=== PATIENT | female | born 1980 | race Caucasian/White ===

== ENCOUNTER 2016-06-05 23:24 | Emergency (ER) | payer OTHER ==
--- NOTE | 2016-06-06 02:32 | ED CLINICAL REPORT ---
Clinical Report - Physicians/Mid Levels [facility] [address] [place] [address] 06/05/2016 23:26 Patient: MALORIE SMALLWOOD Time Seen: 00:20. Arrived- By private vehicle. Historian- patient. HISTORY OF PRESENT ILLNESS Chief Complaint: LOWER EXTREMITY SWELLING. Severity is described as being mild. This started several days ago and is still present. It was gradual in onset and has been constant. Symptoms located in the area of the right ankle, right leg, right foot, left leg, left foot and left ankle. The patient has not had redness. She has had new onset of swelling of the right lower leg, swelling of the left lower leg, swelling of the right ankle, swelling of the left ankle, swelling of the right foot and swelling of the left foot. Patient denies an injury. Similar symptoms previously: Once. ( when she was ). REVIEW OF SYSTEMS No chills, fever, sweats, calf pain or chest pain. No cough, difficulty breathing, palpitations, abdominal pain or constipation. No diarrhea, nausea, vomiting or urinary problems. She has had pedal edema. All systems otherwise negative, except as recorded above. PAST HISTORY ( PCP - [facility]). Problems: Depression. Asthma. Additional Surgeries: no known surgeries. Medications: Uncertain antidepressant. Allergies: No Known Drug Allergy. SOCIAL HISTORY Current some days light tobacco smoker (cigarette). Occasional alcohol use. No drug use. Is a local resident. FAMILY HISTORY Hypertension in first-degree relative (father); cancer in first-degree relative (sibling) and grandparent. ADDITIONAL NOTES The nursing notes have been reviewed. PHYSICAL EXAM Vital Signs: 06/05/2016 23:32 BP: 124/74. HR: 86. RR: 20. O2 saturation: 98%. Temp: 98.3 F. Pain level now: 0/10. Have been reviewed. Appearance: Alert. No acute distress. Eyes: Pupils equal, round and reactive to light. ENT: Pharynx normal. Neck: Normal inspection. Neck supple. No JVD. CVS: Normal heart rate and rhythm. Heart sounds normal. Respiratory: No respiratory distress. Breath sounds normal. Abdomen: Soft and nontender. No organomegaly. Back: Normal inspection. Skin: Skin warm and dry. Normal skin color. Normal skin turgor. Extremities: Lower extremities exhibit normal ROM. Bilateral mild pitting edema of the lower extremities involving both feet, both ankles and both lower legs. No calf tenderness. Extremities otherwise negative. LABS, X-RAYS, AND EKG EKG: No acute process. Normal EKG. Rate: 65. Prior EKG unavailable. The study has been independently viewed by me. Chest X-ray: No acute disease. The X-rays were independently viewed by me. Laboratory Tests: CBC w Diff: (BRITTANI: 06/06/2016 00:30) ( MsgRcvd 06/06/2016 00:41) Final results Test Result Flag Units (Reference) WHITE BLOOD COUNT 9.4 K/uL (4.5-11.5) RED BLOOD COUNT 4.43 M/uL (4.00-5.20) HEMOGLOBIN 13.4 gm/dL (12.0-16.0) HEMATOCRIT 40.6 % (36.0-46.0) MEAN CELL VOLUME 92 fL (80-100) MEAN CORPUSCULAR HGB 30 pg (26-34) MEAN CORPUSCULAR HGB CONC 33 g/dL (31-37) RED CELL DISTRIBUTION WIDTH 13.7 % (11.6-14.8) PLATELET COUNT 325 K/uL (150-400) NEUTROPHIL % 67.9 % (50-75) LYMPH % 23.8 L % (25-40) MONO % 5.3 % (3-14) EOSINOPHIL % 1.7 % (0-4) BASOPHIL % 1.3 % (0-2) BNP: (BRITTANI: 06/06/2016 00:30) ( MsgRcvd 06/06/2016 01:09) Final results Test Result Flag Units (Reference) B-TYPE NATRIURETIC PEPTIDE 65.6 pg/ml (5-100) CMP: (BRITTANI: 06/06/2016 00:30) ( MsgRcvd 06/06/2016 00:55) Final results Test Result Flag Units (Reference) GLUCOSE 98 mg/dL (70-110) BUN 9 mg/dL (7-18) CREATININE 0.8 mg/dL (0.6-1.3) Estimated GFR >60 mL/min Estimated GFR- >60 mL/min Note: Persistent reduction over 3 months in eGFR<60 mL/min/1.73 m2 defines CKD. Patients with eGFR values>=60 mL/min/1.73 m2 may also have CKD if evidence ofpersistent proteinuria. Additional information may be foundat www.kidney.org. SODIUM 143 mmol/L (136-145) POTASSIUM 3.9 mmol/L (3.5-5.1) CHLORIDE 105 mmol/L (98-107) CARBON DIOXIDE 29 mmol/L (21-32) CALCIUM 9.1 mg/dL (8.5-10.1) TOTAL PROTEIN 7.2 g/dL (6.4-8.2) ALBUMIN 3.4 g/dL (3.3-5.0) BILIRUBIN, TOTAL 0.2 mg/dL (0.0-1.0) ALKALINE PHOSPHATASE 56 U/L (46-116) AST (SGOT) 18 U/L (15-37) ALT (SGPT) 28 U/L (12-78) LIPASE 121 U/L (73-393) AMYLASE 67 U/L (25-115) CPK 60 U/L (24-260) TROPONIN I <0.05 L ng/mL (0.00-1.5) TROPONIN REFERENCE RANGE:<0.1 NEGATIVE0.1-1.5 INDETERMINANT>1.5 POSITIVE . PROGRESS AND PROCEDURES Course of Care: Patient is stable. Patient/family counseled. Old medical records ordered. Old records unavailable. Disposition: Discharged. Condition: stable. CLINICAL IMPRESSION Bilateral pedal edema. INSTRUCTIONS Elevate affected areas above chest level. Warnings: Further evaluation is necessary. GENERAL WARNINGS: Return or contact your physician immediately if your condition worsens or changes unexpectedly, if not improving as expected, or if other problems arise. Prescription Medications: Lasix 20 mg: take 1 orally every 24 hours. Dispense five (5). No refills. Substitution is permissible. Understanding of the discharge instructions verbalized by patient. Follow-up with: [facility], , , [address], , [place], [address] Follow up Wednesday in two days. Call for an appointment. (Electronically signed by Jacques Flannery MD 06/08/2016 10:05)
--- NOTE | 2016-06-06 02:32 | ED ORDER SUMMARY ---
..... Patient: MALORIE SMALLWOOD OrderSheet [facility] VisitID: [id number] [place] [address] 35y, F Registration Date/Time: 06/05/2016 ORDER SHEET Weight: 104.3 kg (stated) Allergies: No Known Drug Allergy GENERAL ORDERS: Chest 1V Urgent (00:06/06/2016 Micaela DIXON) (Ack 0:26 SRedmond) (0:29 RFay) CBC w Diff Urgent (00:06/06/2016 Micaela DIXON) (Ack 0:26 SRedmond) (3:31 HSoule) CMP Urgent (00:06/06/2016 Micaela DIXON) (Ack 0:26 SRedmond) (3:31 HSoule) BNP Urgent (00:06/06/2016 Micaela DIXON) (Ack 0:26 SRedmond) (3:31 HSoule) Amylase Urgent (00:06/06/2016 Micaela DIXON) (Ack 0:26 SRedmond) (3:31 HSoule) Lipase Urgent (00:06/06/2016 Micaela DIXON) (Ack 0:26 SRedmond) (3:31 HSoule) CPK Urgent (00:06/06/2016 Micaela DIXON) (Ack 0:26 SRedmond) (3:31 HSoule) Troponin-I Urgent (00:06/06/2016 Micaela DIXON) (Ack 0:26 SRedmond) (3:31 HSoule) Urine Urgent (00:06/06/2016 Micaela DIXON) (Ack 0:26 SRedmond) (Cancelled: Patient Off Unit3:31 HSoule) UA-Culture if indicated Urgent (00:06/06/2016 Micaela DIXON) (Ack 0:26 SRedmond) (Cancelled: Patient Off Unit3:31 HSoule) EKG - ER Stat (00:06/06/2016 Micaela DIXON) (Ack 0:26 SRedmond) (0:34 HSoule) MEDICATION ORDERS: IV FLUIDS: IV Saline Lock (00:06/06/2016 Micaela DIXON) (Ack 0:22 HSoule) (0:34 HSoule) ORDER SHEET NOTES: [Electronically signed by Veronique Singh (03:32 06/06/2016)] [Electronically signed by Jacques Flannery MD (10:05 06/08/2016)] [Electronically locked/signed by Veronique Singh (03:32 06/06/2016)]
--- NOTE | 2016-06-06 02:32 | ED ORDER SUMMARY ---
..... Patient: MALORIE SMALLWOOD OrderSheet [facility] VisitID: [id number] [place] [address] 35y, F Registration Date/Time: 06/05/2016 ORDER SHEET Weight: 104.3 kg (stated) Allergies: No Known Drug Allergy GENERAL ORDERS: Chest 1V Urgent (00:06/06/2016 Micaela DIXON) (Ack 0:26 SRedmond) (0:29 RFay) CBC w Diff Urgent (00:06/06/2016 Micaela DIXON) (Ack 0:26 SRedmond) (3:31 HSoule) CMP Urgent (00:06/06/2016 Micaela DIXON) (Ack 0:26 SRedmond) (3:31 HSoule) BNP Urgent (00:06/06/2016 Micaela DIXON) (Ack 0:26 SRedmond) (3:31 HSoule) Amylase Urgent (00:06/06/2016 Micaela DIXON) (Ack 0:26 SRedmond) (3:31 HSoule) Lipase Urgent (00:06/06/2016 Micaela DIXON) (Ack 0:26 SRedmond) (3:31 HSoule) CPK Urgent (00:06/06/2016 Micaela DIXON) (Ack 0:26 SRedmond) (3:31 HSoule) Troponin-I Urgent (00:06/06/2016 Micaela DIXON) (Ack 0:26 SRedmond) (3:31 HSoule) Urine Urgent (00:06/06/2016 Micaela DIXON) (Ack 0:26 SRedmond) (Cancelled: Patient Off Unit3:31 HSoule) UA-Culture if indicated Urgent (00:06/06/2016 Micaela DIXON) (Ack 0:26 SRedmond) (Cancelled: Patient Off Unit3:31 HSoule) EKG - ER Stat (00:06/06/2016 Micaela DIXON) (Ack 0:26 SRedmond) (0:34 HSoule) MEDICATION ORDERS: IV FLUIDS: IV Saline Lock (00:06/06/2016 Micaela DIXON) (Ack 0:22 HSoule) (0:34 HSoule) ORDER SHEET NOTES: [Electronically signed by Veronique Singh (03:32 06/06/2016)] [Electronically signed by Jacques Flannery MD (10:05 06/08/2016)] [Electronically locked/signed by Veronique Singh (03:32 06/06/2016)]
--- NOTE | 2016-06-06 02:32 | ED NURSING NOTES ---
Clinical Report - Nurses [facility] [address] [place] [address] 06/05/2016 23:26 Patient: MALORIE SMALLWOOD TRIAGE Triage time 23:32 Jun 05 2016. Acuity: LEVEL 3. Chief Complaint: RIGHT LOWER EXTREMITY SWELLING. LEFT LOWER EXTREMITY SWELLING. MARIA ELENA COMA SCORE: Maria Elena Coma Scale: 15- eyes open spontaneously (4); best verbal response- oriented x 4 (5); best motor response- obeys commands (6). --23:35 Veronique Singh 23:32 06/05/16. BP: 124/74. HR: 86. RR: 20. O2 saturation: 98%. Temp: 98.3 F (oral). Pain level now: 0/10. --23:35 Veronique Singh. Weight: 104.3 kg stated. Height/Length: 67 inches Per Patient. BMI: 36. --23:33 Veronique Singh. Medications None. --23:33 Veronique Singh. Medication/allergy information source: the patient. --23:35 Veronique Singh. Allergies No Known Drug Allergy. --23:33 Veronique Singh. History Arrived by private vehicle. Historian: patient. Accompanied by family. Primary physician ([facility]). No injury occurred. This occurred (3 days). ( Patient reports some swelling noted in her feet over the last three days. She denies redness, pain or injury.). Has had no swelling or redness. No difficulty breathing. PAST MEDICAL HX: No history of hypertension. No history of deep vein thrombosis. Immunizations: up-to-date. Last normal menstrual period- Irregular periods, spotting now. Uses depo implants. SOCIAL HX: Light tobacco smoker (cigarette)- less than 1/2 a pack per day. Occasional alcohol use. No drug use. No infectious disease exposure. ABUSE ASSESSMENT: No report of abuse. SELF HARM ASSESSMENT: A self harm assessment was performed. The patient answered "no" to the question "Have you recently felt down, depressed, or hopeless?", "Have you noticed less interest or pleasure in doing things?", "Do you have thoughts of harming or killing yourself?", "Are you here because you tried to hurt yourself?", "Have you ever tried to hurt yourself before today?", "Have you recently had thoughts about harming or killing others?" and "Do you have any dangerous items in your possession?". FALL RISK ASSESSMENT: Fall risk assessment completed. No fall risk identified. NUTRITIONAL RISK ASSESSMENT: The nutritional risk assessment revealed no deficiencies. FUNCTIONAL ASSESSMENT: Functional assessment: no impairments noted. LEARNING NEEDS ASSESSMENT: The learning needs assessment revealed no barriers. SKIN INTEGRITY ASSESSMENT: Skin integrity risk assessment completed. No skin integrity risk identified. --23:35 Veronique Singh. PROBLEMS: Asthma. --23:34 Veronique Singh. ADDITIONAL SURGERIES: no known surgeries. Interventions ID band on patient. To treatment room. --23:35 Veronique Singh. PHYSICAL ASSESSMENT GENERAL / NEURO / PSYCH: Oriented X 4. Alert. Appears in no acute distress. EXTREMITIES: Bilateral 1+ pitting edema of the lower extremities involving both feet and both ankles. Extremity pulses are within normal limits. Extremities exhibit normal ROM. SKIN: Skin intact. Skin is warm and dry. --23:36 Veronique Singh. NURSING PROGRESS NOTES Monitoring of patient in place. Extremity elevated. Patient gowned. Reassurance given to the patient. Two patient identifiers checked. Call light placed in reach. Side rails up x 1. Bed placed in lowest position. Brakes of bed on. Patient ready for evaluation- chart flagged and ED physician notified. --23:37 Veronique Singh 00:29 06/06/2016 Site #1 started via IV in the right antecubital space with an 20g angiocath, with aseptic technique and good blood return; one attempt. Blood drawn: rainbow set. Labeled in the presence of the patient and sent to the lab. Saline lock flushed with 10 mL saline. --00:34 Veronique Singh EKG time: (0038). EKG was ordered, performed by a tech and shown to the ED physician. --01:15 Shey Figueredo ( Provider at bedside, patient has no complaints at this time). --02:07 Veronique Singh 02:05 06/06/16. BP: 104/65. HR: 70. RR: 20. O2 saturation: 98% on room air. --02:07 Veronique Singh 01:30 06/06/16. --03:30 Veronique Singh 03:29 06/06/16. BP: 118/60. HR: 70. O2 saturation: 98% on room air. --03:30 Veronique Singh. DISPOSITION / DISCHARGE 02:45 06/06/16. BP: 112/74. HR: 70. RR: 20. O2 saturation: 98% on room air. Pain level now: 04/10. --03:27 Veronique Singh 02:40 06/06/2016 Site #1 removed upon discharge. Catheter intact. Bandaid applied. --03:27 Veronique Singh 02:45 06/06/16. Condition at departure: stable. The goals identified in the patient's plan of care were met. No learning barriers present. Discharge instructions provided and reviewed with the patient and family. Reviewed medication(s) side effects, precautions, dosing and course information. Prescription(s) given to the patient. Patient verbalized understanding. Written instructions provided in Sudanese. ( Follow up with [facility] in three days for an appointment. Discuss the addition of your new medication with your PCP. Return if symptoms worsen. Elevate your feet above your heart at night.). The patient was discharged by the physician. She was discharged home and accompanied by family. She left the Emergency Department ambulatory and via private vehicle. Family member driving. FALL RISK ASSESSMENT: Fall risk assessment completed. No fall risk identified. --03:27 Veronique Singh. Locked/Released at 06/06/2016 3:32 by Veronique Singh,
--- NOTE | 2016-06-06 02:32 | ED CLINICAL REPORT ---
Clinical Report - Physicians/Mid Levels [facility] [address] [place] [address] 06/05/2016 23:26 Patient: MALORIE SMALLWOOD Time Seen: 00:20. Arrived- By private vehicle. Historian- patient. HISTORY OF PRESENT ILLNESS Chief Complaint: LOWER EXTREMITY SWELLING. Severity is described as being mild. This started several days ago and is still present. It was gradual in onset and has been constant. Symptoms located in the area of the right ankle, right leg, right foot, left leg, left foot and left ankle. The patient has not had redness. She has had new onset of swelling of the right lower leg, swelling of the left lower leg, swelling of the right ankle, swelling of the left ankle, swelling of the right foot and swelling of the left foot. Patient denies an injury. Similar symptoms previously: Once. ( when she was ). REVIEW OF SYSTEMS No chills, fever, sweats, calf pain or chest pain. No cough, difficulty breathing, palpitations, abdominal pain or constipation. No diarrhea, nausea, vomiting or urinary problems. She has had pedal edema. All systems otherwise negative, except as recorded above. PAST HISTORY ( PCP - [facility]). Problems: Depression. Asthma. Additional Surgeries: no known surgeries. Medications: Uncertain antidepressant. Allergies: No Known Drug Allergy. SOCIAL HISTORY Current some days light tobacco smoker (cigarette). Occasional alcohol use. No drug use. Is a local resident. FAMILY HISTORY Hypertension in first-degree relative (father); cancer in first-degree relative (sibling) and grandparent. ADDITIONAL NOTES The nursing notes have been reviewed. PHYSICAL EXAM Vital Signs: 06/05/2016 23:32 BP: 124/74. HR: 86. RR: 20. O2 saturation: 98%. Temp: 98.3 F. Pain level now: 0/10. Have been reviewed. Appearance: Alert. No acute distress. Eyes: Pupils equal, round and reactive to light. ENT: Pharynx normal. Neck: Normal inspection. Neck supple. No JVD. CVS: Normal heart rate and rhythm. Heart sounds normal. Respiratory: No respiratory distress. Breath sounds normal. Abdomen: Soft and nontender. No organomegaly. Back: Normal inspection. Skin: Skin warm and dry. Normal skin color. Normal skin turgor. Extremities: Lower extremities exhibit normal ROM. Bilateral mild pitting edema of the lower extremities involving both feet, both ankles and both lower legs. No calf tenderness. Extremities otherwise negative. LABS, X-RAYS, AND EKG EKG: No acute process. Normal EKG. Rate: 65. Prior EKG unavailable. The study has been independently viewed by me. Chest X-ray: No acute disease. The X-rays were independently viewed by me. Laboratory Tests: CBC w Diff: (BRITTANI: 06/06/2016 00:30) ( MsgRcvd 06/06/2016 00:41) Final results Test Result Flag Units (Reference) WHITE BLOOD COUNT 9.4 K/uL (4.5-11.5) RED BLOOD COUNT 4.43 M/uL (4.00-5.20) HEMOGLOBIN 13.4 gm/dL (12.0-16.0) HEMATOCRIT 40.6 % (36.0-46.0) MEAN CELL VOLUME 92 fL (80-100) MEAN CORPUSCULAR HGB 30 pg (26-34) MEAN CORPUSCULAR HGB CONC 33 g/dL (31-37) RED CELL DISTRIBUTION WIDTH 13.7 % (11.6-14.8) PLATELET COUNT 325 K/uL (150-400) NEUTROPHIL % 67.9 % (50-75) LYMPH % 23.8 L % (25-40) MONO % 5.3 % (3-14) EOSINOPHIL % 1.7 % (0-4) BASOPHIL % 1.3 % (0-2) BNP: (BRITTANI: 06/06/2016 00:30) ( MsgRcvd 06/06/2016 01:09) Final results Test Result Flag Units (Reference) B-TYPE NATRIURETIC PEPTIDE 65.6 pg/ml (5-100) CMP: (BRITTANI: 06/06/2016 00:30) ( MsgRcvd 06/06/2016 00:55) Final results Test Result Flag Units (Reference) GLUCOSE 98 mg/dL (70-110) BUN 9 mg/dL (7-18) CREATININE 0.8 mg/dL (0.6-1.3) Estimated GFR >60 mL/min Estimated GFR- >60 mL/min Note: Persistent reduction over 3 months in eGFR<60 mL/min/1.73 m2 defines CKD. Patients with eGFR values>=60 mL/min/1.73 m2 may also have CKD if evidence ofpersistent proteinuria. Additional information may be foundat www.kidney.org. SODIUM 143 mmol/L (136-145) POTASSIUM 3.9 mmol/L (3.5-5.1) CHLORIDE 105 mmol/L (98-107) CARBON DIOXIDE 29 mmol/L (21-32) CALCIUM 9.1 mg/dL (8.5-10.1) TOTAL PROTEIN 7.2 g/dL (6.4-8.2) ALBUMIN 3.4 g/dL (3.3-5.0) BILIRUBIN, TOTAL 0.2 mg/dL (0.0-1.0) ALKALINE PHOSPHATASE 56 U/L (46-116) AST (SGOT) 18 U/L (15-37) ALT (SGPT) 28 U/L (12-78) LIPASE 121 U/L (73-393) AMYLASE 67 U/L (25-115) CPK 60 U/L (24-260) TROPONIN I <0.05 L ng/mL (0.00-1.5) TROPONIN REFERENCE RANGE:<0.1 NEGATIVE0.1-1.5 INDETERMINANT>1.5 POSITIVE . PROGRESS AND PROCEDURES Course of Care: Patient is stable. Patient/family counseled. Old medical records ordered. Old records unavailable. Disposition: Discharged. Condition: stable. CLINICAL IMPRESSION Bilateral pedal edema. INSTRUCTIONS Elevate affected areas above chest level. Warnings: Further evaluation is necessary. GENERAL WARNINGS: Return or contact your physician immediately if your condition worsens or changes unexpectedly, if not improving as expected, or if other problems arise. Prescription Medications: Lasix 20 mg: take 1 orally every 24 hours. Dispense five (5). No refills. Substitution is permissible. Understanding of the discharge instructions verbalized by patient. Follow-up with: [facility], , , [address], , [place], [address] Follow up Wednesday in two days. Call for an appointment. (Electronically signed by Jacques Flannery MD 06/08/2016 10:05)
--- NOTE | 2016-06-06 05:51 | DIAGNOSTIC IMAGING REPORT ---
PROCEDURE: XR CHEST 1 VIEW INDICATION: EDEMA TECHNIQUE: Portable AP view 0030 hours). COMPARISON: None. FINDINGS: Lungs are clear. Heart and mediastinum are normal. Thorax is normal. IMPRESSION: 1. Negative chest.
--- NOTE | 2016-06-08 10:05 | ED MAR SUMMARY ---
..... Medication Administration Record [facility] [address] [place], [place] [id number] Patient: SMALLWOOD MALORIE Hodges Visit ID: [id number] 35y, F Weight: 104.3 kg Height/Length: 67 in BMI: 36 ALLERGIES: No Known Drug Allergy
--- NOTE | 2016-06-08 10:05 | ED MED RECONCILIATION SUMMARY ---
Patient: MALORIE SMALLWOOD Medication Reconciliation Report [facility] VisitID: [id number] [address] [place] [address] 35y, F Registration Date/Time: 06/05/2016 Weight: 104.3 kg Height/Length: 67 in. BMI: 36.0 ALLERGIES: No Known Drug Allergy The patient's Home Medications are listed below: THE FOLLOWING MEDICATIONS NEED TO BE RECONCILED: Uncertain antidepressant The source(s) of the original Home Medication information: patient The following Medications were given to the patient in the Emergency Department: None. The following Medications were prescribed to the patient: Lasix 20 mg: take 1 orally every 24 hours. Dispense five (5). No refills. Substitution is permissible. -- Jacques Flannery MD
--- NOTE | 2016-06-08 10:05 | ED DISCHARGE INSTRUCTIONS ---
Patient: MALORIE SMALLWOOD General Instructions [facility] VisitID: [id number] [address] [place] [address] 35y, F Registration Date/Time: 06/05/2016 Bilateral pedal edema. INSTRUCTIONS Elevate affected areas above chest level. Warnings: Further evaluation is necessary. GENERAL WARNINGS: Return or contact your physician immediately if your condition worsens or changes unexpectedly, if not improving as expected, or if other problems arise. Prescription Medications: Lasix 20 mg: take 1 orally every 24 hours. Dispense five (5). No refills. Substitution is permissible. Understanding of the discharge instructions verbalized by patient. Follow-up with: [facility], , , [address], [place], [address] Follow up Wednesday in two days. Call for an appointment. ADDITIONAL INFORMATION Leg Swelling [Bilateral] Swelling of the feet, ankles and legs is called "Edema." It is due to excess fluid collecting in the tissues. Because of gravity, excess fluid in the body settles in the lowest part. This is why the legs and feet are most affected. Some of the causes for edema include: Disease of the heart (congestive heart failure or "CHF") Prolonged standing or sitting (with the legs in the down position) Infection of the feet or legs Venous Insufficiency (congestion of blood in the veins of the legs) Varicose veins (dilated veins of the lower leg) Garters, or clothing that constricts your legs. (These will cause venous congestion by restricting blood flow.) Some medicines (hormones such as control pills; some blood pressure medicines, such as calcium channel blockers; steroids; some antidepressants such as MAO inhibitors and tricyclics.) Menstrual periods with fluid retention Renal insufficiency (a form of kidney disease) Liver failure (Some swelling is normal, but a sudden increase in leg swelling or weight gain can be a sign of a dangerous complication of ). Medical treatment will depend on the cause of your swelling. Diuretics (water pills) may be prescribed to remove excess fluid. Home Care: Do not wear garments that constrict your legs (such as garters). Elevate your legs while lying or sitting. If infection, injury or recent surgery is the cause for your swelling, stay off your legs as much as possible until symptoms improve. If your doctor says that your leg swelling is caused by venous insufficiency or varicose veins, do not sit or soaping department supervisor one place for long periods of time. Take breaks and walk about every few hours. Brisk walking is a good exercise and helps circulate the congested blood from your leg. Talk to your doctor about the use of support stockings to prevent daytime leg swelling. If your doctor says that heart disease is the cause of your leg swelling, follow a low-salt diet to prevent excess fluid retention. Follow Up with your doctor or as advised by our staff. Get Prompt Medical Attention if any of the following occur: New or worsening shortness of breath or chest pain Increasing swelling in both legs or ankles Swelling of the abdomen Redness, warmth or swelling in one leg Fever of 100.4F (38C) or higher, or as directed by your healthcare provider Yellow color to the skin or eyes Rapid, unexplained weight gain Furosemide Oral tablet What is this medicine? FUROSEMIDE (fyoor [place] se mide) is a diuretic. It helps you make more urine and to lose salt and excess water from your body. This medicine is used to treat high blood pressure, and edema or swelling from heart, kidney, or liver disease. How should I use this medicine? Take this medicine by mouth with a glass of water. Follow the directions on the prescription label. You may take this medicine with or without food. If it upsets your stomach, take it with food or milk. Do not take your medicine more often than directed. Remember that you will need to pass more urine after taking this medicine. Do not take your medicine at a time of day that will cause you problems. Do not take at bedtime. Talk to your water quality control engineer regarding the use of this medicine in children. While this drug may be prescribed for selected conditions, precautions do apply. What side effects may I notice from receiving this medicine? Side effects that you should report to your doctor or health critical care transport nurse as soon as possible: blood in urine or stools dry mouth fever or chills hearing loss or ringing in the ears irregular heartbeat muscle pain or weakness, cramps skin rash stomach upset, pain, or nausea tingling or numbness in the hands or feet unusually weak or tired vomiting or diarrhea yellowing of the eyes or skin Side effects that usually do not require medical attention (report to your doctor or health critical care transport nurse if they continue or are bothersome): headache loss of appetite unusual bleeding or bruising What may interact with this medicine? aspirin and aspirin-like medicines certain antibiotics chloral hydrate cisplatin cyclosporine digoxin diuretics laxatives lithium medicines for blood pressure medicines that relax muscles for surgery methotrexate NSAIDs, medicines for pain and inflammation like ibuprofen, naproxen, or indomethacin phenytoin steroid medicines like prednisone or cortisone sucralfate What if I miss a dose? If you miss a dose, take it as soon as you can. If it is almost time for your next dose, take only that dose. Do not take double or extra doses. Where should I keep my medicine? Keep out of the reach of children. Store at room temperature between 15 and 30 degrees C (59 and 86 degrees F). Protect from light. Throw away any unused medicine after the expiration date. What should I tell my health care provider before I take this medicine? They need to know if you have any of these conditions: abnormal blood electrolytes diarrhea or vomiting gout heart disease kidney disease, small amounts of urine, or difficulty passing urine liver disease an unusual or allergic reaction to furosemide, sulfa drugs, other medicines, foods, dyes, or preservatives or trying to get breast-feeding What should I watch for while using this medicine? Visit your doctor or health critical care transport nurse for regular checks on your progress. Check your blood pressure regularly. Ask your doctor or health critical care transport nurse what your blood pressure should be, and when you should contact him or her. If you are a diabetic, check your blood sugar as directed. You may need to be on a special diet while taking this medicine. Check with your doctor. Also, ask how many glasses of fluid you need to drink a day. You must not get dehydrated. You may get drowsy or dizzy. Do not drive, use machinery, or do anything that needs mental alertness until you know how this drug affects you. Do not stand or sit up quickly, especially if you are an older patient. This reduces the risk of dizzy or fainting spells. Alcohol can make you more drowsy and dizzy. Avoid alcoholic drinks. This medicine can make you more sensitive to the sun. Keep out of the sun. If you cannot avoid being in the sun, wear protective clothing and use sunscreen. Do not use sun lamps or tanning beds/booths. You have been given the following additional information: Peripheral Edema, Bilateral Furosemide Oral tablet (Electronically signed by Jacques Flannery MD 06/08/2016 10:05)
--- NOTE | 2016-06-08 10:05 | ED MED RECONCILIATION SUMMARY ---
Patient: MALORIE SMALLWOOD Medication Reconciliation Report [facility] VisitID: [id number] [address] [place] [address] 35y, F Registration Date/Time: 06/05/2016 Weight: 104.3 kg Height/Length: 67 in. BMI: 36.0 ALLERGIES: No Known Drug Allergy The patient's Home Medications are listed below: THE FOLLOWING MEDICATIONS NEED TO BE RECONCILED: Uncertain antidepressant The source(s) of the original Home Medication information: patient The following Medications were given to the patient in the Emergency Department: None. The following Medications were prescribed to the patient: Lasix 20 mg: take 1 orally every 24 hours. Dispense five (5). No refills. Substitution is permissible. -- Jacques Flannery MD
--- NOTE | 2016-06-08 10:05 | ED MAR SUMMARY ---
..... Medication Administration Record [facility] [address] [place], [place] [id number] Patient: SMALLWOOD MALORIE Hodges Visit ID: [id number] 35y, F Weight: 104.3 kg Height/Length: 67 in BMI: 36 ALLERGIES: No Known Drug Allergy
--- NOTE | 2016-06-08 10:05 | ED DISCHARGE INSTRUCTIONS ---
Patient: MALORIE SMALLWOOD General Instructions [facility] VisitID: [id number] [address] [place] [address] 35y, F Registration Date/Time: 06/05/2016 Bilateral pedal edema. INSTRUCTIONS Elevate affected areas above chest level. Warnings: Further evaluation is necessary. GENERAL WARNINGS: Return or contact your physician immediately if your condition worsens or changes unexpectedly, if not improving as expected, or if other problems arise. Prescription Medications: Lasix 20 mg: take 1 orally every 24 hours. Dispense five (5). No refills. Substitution is permissible. Understanding of the discharge instructions verbalized by patient. Follow-up with: [facility], , , [address], [place], [address] Follow up Wednesday in two days. Call for an appointment. ADDITIONAL INFORMATION Leg Swelling [Bilateral] Swelling of the feet, ankles and legs is called "Edema." It is due to excess fluid collecting in the tissues. Because of gravity, excess fluid in the body settles in the lowest part. This is why the legs and feet are most affected. Some of the causes for edema include: Disease of the heart (congestive heart failure or "CHF") Prolonged standing or sitting (with the legs in the down position) Infection of the feet or legs Venous Insufficiency (congestion of blood in the veins of the legs) Varicose veins (dilated veins of the lower leg) Garters, or clothing that constricts your legs. (These will cause venous congestion by restricting blood flow.) Some medicines (hormones such as control pills; some blood pressure medicines, such as calcium channel blockers; steroids; some antidepressants such as MAO inhibitors and tricyclics.) Menstrual periods with fluid retention Renal insufficiency (a form of kidney disease) Liver failure (Some swelling is normal, but a sudden increase in leg swelling or weight gain can be a sign of a dangerous complication of ). Medical treatment will depend on the cause of your swelling. Diuretics (water pills) may be prescribed to remove excess fluid. Home Care: Do not wear garments that constrict your legs (such as garters). Elevate your legs while lying or sitting. If infection, injury or recent surgery is the cause for your swelling, stay off your legs as much as possible until symptoms improve. If your doctor says that your leg swelling is caused by venous insufficiency or varicose veins, do not sit or swimming pool plasterer helper one place for long periods of time. Take breaks and walk about every few hours. Brisk walking is a good exercise and helps circulate the congested blood from your leg. Talk to your doctor about the use of support stockings to prevent daytime leg swelling. If your doctor says that heart disease is the cause of your leg swelling, follow a low-salt diet to prevent excess fluid retention. Follow Up with your doctor or as advised by our staff. Get Prompt Medical Attention if any of the following occur: New or worsening shortness of breath or chest pain Increasing swelling in both legs or ankles Swelling of the abdomen Redness, warmth or swelling in one leg Fever of 100.4F (38C) or higher, or as directed by your healthcare provider Yellow color to the skin or eyes Rapid, unexplained weight gain Furosemide Oral tablet What is this medicine? FUROSEMIDE (fyoor [place] se mide) is a diuretic. It helps you make more urine and to lose salt and excess water from your body. This medicine is used to treat high blood pressure, and edema or swelling from heart, kidney, or liver disease. How should I use this medicine? Take this medicine by mouth with a glass of water. Follow the directions on the prescription label. You may take this medicine with or without food. If it upsets your stomach, take it with food or milk. Do not take your medicine more often than directed. Remember that you will need to pass more urine after taking this medicine. Do not take your medicine at a time of day that will cause you problems. Do not take at bedtime. Talk to your drier take off tender regarding the use of this medicine in children. While this drug may be prescribed for selected conditions, precautions do apply. What side effects may I notice from receiving this medicine? Side effects that you should report to your doctor or health adult daycare coordinator as soon as possible: blood in urine or stools dry mouth fever or chills hearing loss or ringing in the ears irregular heartbeat muscle pain or weakness, cramps skin rash stomach upset, pain, or nausea tingling or numbness in the hands or feet unusually weak or tired vomiting or diarrhea yellowing of the eyes or skin Side effects that usually do not require medical attention (report to your doctor or health adult daycare coordinator if they continue or are bothersome): headache loss of appetite unusual bleeding or bruising What may interact with this medicine? aspirin and aspirin-like medicines certain antibiotics chloral hydrate cisplatin cyclosporine digoxin diuretics laxatives lithium medicines for blood pressure medicines that relax muscles for surgery methotrexate NSAIDs, medicines for pain and inflammation like ibuprofen, naproxen, or indomethacin phenytoin steroid medicines like prednisone or cortisone sucralfate What if I miss a dose? If you miss a dose, take it as soon as you can. If it is almost time for your next dose, take only that dose. Do not take double or extra doses. Where should I keep my medicine? Keep out of the reach of children. Store at room temperature between 15 and 30 degrees C (59 and 86 degrees F). Protect from light. Throw away any unused medicine after the expiration date. What should I tell my health care provider before I take this medicine? They need to know if you have any of these conditions: abnormal blood electrolytes diarrhea or vomiting gout heart disease kidney disease, small amounts of urine, or difficulty passing urine liver disease an unusual or allergic reaction to furosemide, sulfa drugs, other medicines, foods, dyes, or preservatives or trying to get breast-feeding What should I watch for while using this medicine? Visit your doctor or health adult daycare coordinator for regular checks on your progress. Check your blood pressure regularly. Ask your doctor or health adult daycare coordinator what your blood pressure should be, and when you should contact him or her. If you are a diabetic, check your blood sugar as directed. You may need to be on a special diet while taking this medicine. Check with your doctor. Also, ask how many glasses of fluid you need to drink a day. You must not get dehydrated. You may get drowsy or dizzy. Do not drive, use machinery, or do anything that needs mental alertness until you know how this drug affects you. Do not stand or sit up quickly, especially if you are an older patient. This reduces the risk of dizzy or fainting spells. Alcohol can make you more drowsy and dizzy. Avoid alcoholic drinks. This medicine can make you more sensitive to the sun. Keep out of the sun. If you cannot avoid being in the sun, wear protective clothing and use sunscreen. Do not use sun lamps or tanning beds/booths. You have been given the following additional information: Peripheral Edema, Bilateral Furosemide Oral tablet (Electronically signed by Jacques Flannery MD 06/08/2016 10:05)
== END 2016-06-06 02:45 | disposition home or self-care (01) ==
LOC: ED SRH 23:24
DX: R60.0 Localized edema (principal); F17.210 Nicotine dependence, cigarettes, uncomplicated; J45.909 Unspecified asthma, uncomplicated
CPT/HCPCS: 90100; 90616; 91320; 92235; 92530; 92610; 95059